=== PATIENT | male | born 1970 | race Caucasian/White ===

== ENCOUNTER 2018-01-17 08:52 | Outpatient (CLI) | payer BC, SELFPAY ==
--- NOTE | 2018-01-17 09:00 | SATEXT_ITS ---
Assessment: Mr. Solorio presents for nutritional counseling for weight management. He has a history of losing significant amounts of weight but he is unable to keep it off. Most recently he did the ideal protein diet and lost 70( ?) pounds but he has since gained it back. He describes his work as mostly sedentary. When he is on his feet he is mostly standing. He reports that he works long hours especially in the summer so at this time he has not worked in an additional physical activity. His dietary recall shows that he has a breakfast sandwich from a store in the morning, he may grab a hot dog or a salad again from a store for lunch, he may have a power bar for a snack, and then dinner is whatever his makes. He drinks black coffee and water all day. He does have 1-2 beers daily. [age] is [age] 347 lbs. His BMI is 50.4 kg/m2. Nutritional Diagnosis: Class 3 obesity related to excess energy intake and physical inactivity as evidenced by BMI of 50.4 kg/m2. Intervention: Acknowledged his efforts in trying to lose weight and the difficulty with working long hours. We discussed the importance of planning meals for work and stocking his refrigerator at work so he can have breakfast and lunch in his office and not from a convenient store. We also discussed prepping fruits and veggies when he firsts buys them. Provided written materials with other tips and strategies. At this visit, we did not set an action plan for physical activity however we talked about its importance. Monitoring and Evaluation: Mr. Solorio will self monitor his progress on his action plans and will return for follow up in two weeks. Will evaluate his nutrition care plan at that time and adjust as needed. Thank you for the referral.
== END 2018-01-17 08:53 ==
PROVIDERS: PCP Internal Medicine; Visit Provider Dietitian, Registered
DX: E66.9 Obesity, unspecified (principal); Z71.3 Dietary counseling and surveillance
CPT/HCPCS: 97802

== ENCOUNTER 2018-02-07 12:24 | Outpatient (CLI) | payer BC, SELFPAY ==
--- NOTE | 2018-02-07 08:00 | NS.NUTBLAN_ITS ---
Mr. Solorio returns for follow up nutritional counseling for weight management. He reports that he has followed through on the action plans that he set forth at our last session. He is packing fruits and vegetables for work. He is also packing more lunches in general. His weight is down to 343 lbs. He would like to return to follow up in one month as he states he would like to have someone to report to. Will continue to monitor PO intake, physical activity and weight. Will evaluate nutrition care plan ongoing and adjust accordingly.
== END 2018-02-07 12:44 ==
PROVIDERS: PCP Internal Medicine; Visit Provider Dietitian, Registered
DX: E66.2 Morbid (severe) obesity with alveolar hypoventilation (principal); Z68.43 Body mass index [BMI] 50.0-59.9, adult; Z71.3 Dietary counseling and surveillance
CPT/HCPCS: 97803

== ENCOUNTER 2018-10-04 09:57 | Outpatient (REF) | payer BC, SELFPAY ==
[2018-10-04 22:18] LABS: Anion Gap 8.6 mmol/L (3-11); BUN 16 mg/dL (7-18); CO2 28.4 mmol/L (21.0-32.0); CREATININE 1.03 mg/dL (0.70-1.30); Calcium 9.2 mg/dL (8.5-10.1); Chloride 102 mmol/L (98-107); Glucose 99 mg/dL (70-100); Potassium 3.8 mmol/L (3.5-5.1); Sodium 139 mmol/L (136-145)
[2018-10-04 22:41] LABS: Cholesterol 174 mg/dL (50-200); HDL Cholesterol 37 mg/dL (40-60); LDL CHOLESTEROL 122 mg/dL (<100); Triglyceride 82 mg/dL (30-150)
== END 2018-10-04 10:17 ==
LOC: NCHCN 09:57
PROVIDERS: PCP Internal Medicine; Visit Provider Internal Medicine
DX: I10 Essential (primary) hypertension (principal); Z13.220 Encounter for screening for lipoid disorders
CPT/HCPCS: 80048; 80061; 83721

== ENCOUNTER 2019-12-09 12:21 | Outpatient (REF) | payer BC, SELFPAY | END 2019-12-09 12:41 | LOC: NCHCN 12:21 | PROVIDERS: PCP Internal Medicine; Visit Provider Nurse Practitioner Family | DX: R10.11 Right upper quadrant pain (principal) | CPT/HCPCS: 87086 ==

== ENCOUNTER 2020-08-26 10:21 | Outpatient (REF) | payer BC, SELFPAY ==
[2020-08-26 13:44] LABS: ALT 51 U/L (16-63); AST 29 U/L (15-37); Albumin 3.7 g/dL (3.4-5.0); Alkaline Phosphatase 67 U/L (46-116); Anion Gap -0.8 mmol/L (3-11); BUN 15 mg/dL (7-18); Bilirubin, Total 0.6 mg/dL (0.2-1.0); CO2 28.8 mmol/L (21.0-32.0); CREATININE 1.1 mg/dL (0.70-1.30); Calcium 8.9 mg/dL (8.5-10.1); Calculated LDL 107 mg/dL (<100); Chloride 102 mmol/L (98-107); Cholesterol 165 mg/dL (<200); Glucose 110 mg/dL (74-106); HDL Cholesterol 42 mg/dL (40-60); Potassium 4.1 mmol/L (3.5-5.1); Sodium 130 mmol/L (136-145); Total Protein 7.1 g/dL (6.4-8.2); Triglyceride 80 mg/dL (<150)
== END 2020-08-26 10:22 | disposition home or self-care (01) ==
LOC: NCHCN 10:21
PROVIDERS: PCP Internal Medicine; Visit Provider Internal Medicine
DX: I10 Essential (primary) hypertension (principal); Z13.220 Encounter for screening for lipoid disorders
CPT/HCPCS: 80053; 80061

== ENCOUNTER 2021-03-24 09:47 | Outpatient (REF) | payer BC, SELFPAY ==
[2021-03-24 15:06] LABS: Abs Immature Grans 0.05 10^3/uL (0.0-0.06); Absolute Basophil Count 0.04 10^3/uL (0.0-0.2); Absolute Lymphocyte Count 1.65 10^3/uL (1.2-3.4); Absolute Monocyte Count 0.47 10^3/uL (0.1-0.8); Absolute Neutrophil Count 3.98 10^3/uL (1.2-6.7); Basophils % 0.6; Eosinophils % 4.6; HCT 46.2 % (40.0-50.0); HGB 14.7 g/dL (13.5-17.5); Immature Grans % 0.8; Lymphocytes % 25.4; MCH 26.5 pg (27.0-33.0); MCHC 31.8 % (32.0-36.0); MCV 83.4 fL (80-95); MPV 10.6 fL (8.0-11.0); Monocytes % 7.2; Neutrophils % 61.4; Nucleated RBC 0 %; Platelet Count 272 10^3/uL (130-400); RBC 5.54 10^6/uL (4.36-5.78); RDW-SD 39.3 fL; WBC 6.49 10^3/uL (4.4-10.8)
[2021-03-24 15:15] LABS: Glucose 95 mg/dL (74-106)
[2021-03-24 15:27] LABS: Hemoglobin A1C 5.8 % (<5.7)
== END 2021-03-24 09:48 | disposition home or self-care (01) ==
LOC: NCHCN 09:47
PROVIDERS: PCP Internal Medicine; Visit Provider Internal Medicine
DX: R73.03 Prediabetes (principal); G47.33 Obstructive sleep apnea (adult) (pediatric); Z12.5 Encounter for screening for malignant neoplasm of prostate; I10 Essential (primary) hypertension
CPT/HCPCS: 82947; 84153; 83036; 85025

== ENCOUNTER 2021-09-27 08:54 | Outpatient (REF) | payer BC, SELFPAY ==
[2021-09-27 15:27] LABS: Hemoglobin A1C 5.9 % (<5.7)
[2021-09-27 15:54] LABS: ALT 33 U/L (16-63); AST 22 U/L (15-37); Albumin 3.8 g/dL (3.4-5.0); Alkaline Phosphatase 68 U/L (46-116); BUN 18 mg/dL (7-18); Bilirubin, Direct 0.1 mg/dL (0.0-0.2); Bilirubin, Total 0.5 mg/dL (0.2-1.0); Calcium 8.7 mg/dL (8.5-10.1); Calculated LDL 107 mg/dL (<100); Chloride 103 mmol/L (98-107); Cholesterol 166 mg/dL (<200); Glucose 99 mg/dL (74-106); HDL Cholesterol 45 mg/dL (40-60); Potassium 4.3 mmol/L (3.5-5.1); Sodium 140 mmol/L (136-145); Total Protein 7.1 g/dL (6.4-8.2); Triglyceride 74 mg/dL (<150)
== END 2021-09-27 08:55 | disposition home or self-care (01) ==
LOC: NCHCN 08:54
PROVIDERS: PCP Internal Medicine; Visit Provider Internal Medicine
DX: R73.03 Prediabetes (principal); E78.5 Hyperlipidemia, unspecified; E66.9 Obesity, unspecified
CPT/HCPCS: 80053; 80061; 80076; 83036

== ENCOUNTER 2022-09-28 17:47 | Outpatient (REF) | payer BC, SELFPAY ==
[2022-09-28 15:29] LABS: ALT 39 U/L (16-63); AST 27 U/L (15-37); Albumin 3.9 g/dL (3.4-5.0); Alkaline Phosphatase 65 U/L (46-116); Anion Gap 8.4 mmol/L (3-11); BUN 18 mg/dL (7-18); Bilirubin, Total 0.5 mg/dL (0.2-1.0); CO2 29.6 mmol/L (21.0-32.0); CREATININE 1.3 mg/dL (0.70-1.30); Calcium 9.5 mg/dL (8.5-10.1); Calculated LDL 116 mg/dL (<100); Chloride 102 mmol/L (98-107); Cholesterol 177 mg/dL (<200); Estimated GFR 66.51 (mL/min/1.73m2); Glucose 107 mg/dL (74-106); HDL Cholesterol 48 mg/dL (40-60); Potassium 3.7 mmol/L (3.5-5.1); Sodium 140 mmol/L (136-145); Triglyceride 68 mg/dL (<150)
== END 2022-09-28 17:48 | disposition home or self-care (01) ==
LOC: NCHCN 17:47
PROVIDERS: PCP Internal Medicine; Visit Provider Internal Medicine
DX: I10 Essential (primary) hypertension (principal); E78.5 Hyperlipidemia, unspecified; R73.03 Prediabetes
CPT/HCPCS: 80053; 80061

== ENCOUNTER 2023-06-19 16:55 | Outpatient (REF) | payer BC, SELFPAY ==
[2023-06-19 22:19] LABS: Anion Gap 11.3 mmol/L (3-11); BUN 18 mg/dL (7-18); CO2 24.7 mmol/L (21.0-32.0); CREATININE 1.1 mg/dL (0.70-1.30); Calcium 9.9 mg/dL (8.5-10.1); Chloride 101 mmol/L (98-107); Estimated GFR 80.77 (mL/min/1.73m2); Glucose 115 mg/dL (74-106); Potassium 3.9 mmol/L (3.5-5.1); Sodium 137 mmol/L (136-145)
[2023-06-19 22:23] LABS: Hemoglobin A1C 5.9 % (<5.7)
== END 2023-06-19 16:56 | disposition home or self-care (01) ==
LOC: NCHCN 16:55
PROVIDERS: PCP Internal Medicine; Visit Provider Internal Medicine
DX: I10 Essential (primary) hypertension (principal); R73.03 Prediabetes
CPT/HCPCS: 80048; 83036

== ENCOUNTER 2023-09-04 13:17 | Outpatient (REF) | payer BC, SELFPAY ==
[2023-09-04 21:40] LABS: HCT 42.6 % (40.0-50.0); HGB 14.4 g/dL (13.5-17.5); MCH 27.7 pg (27.0-33.0); MCHC 33.8 % (32.0-36.0); MCV 82 fL (80-95); MPV 10.3 fL (8.0-11.0); Platelet Count 337 10^3/uL (130-400); RDW 12.5 % (11.8-14.1); RDW-SD 37.3 fL; WBC 9.18 10^3/uL (4.4-10.8)
[2023-09-04 22:01] LABS: Anion Gap 9.9 mmol/L (3-11); BUN 21 mg/dL (7-18); CO2 26.1 mmol/L (21.0-32.0); CREATININE 1.2 mg/dL (0.70-1.30); Calcium 9.3 mg/dL (8.5-10.1); Chloride 100 mmol/L (98-107); Estimated GFR 72.76 (mL/min/1.73m2); Glucose 147 mg/dL (74-106); Potassium 3.5 mmol/L (3.5-5.1); Sodium 136 mmol/L (136-145); TSH 2.33 uIU/Ml (0.36-3.74)
== END 2023-09-04 13:18 | disposition home or self-care (01) ==
LOC: NCHCN 13:17
PROVIDERS: PCP Internal Medicine; Visit Provider Internal Medicine
DX: I10 Essential (primary) hypertension (principal); R73.03 Prediabetes; E66.9 Obesity, unspecified
CPT/HCPCS: 80048; 85027; 83036; 84443

== ENCOUNTER 2024-08-30 16:11 | Outpatient (REF) | payer BC, SELFPAY ==
[2024-08-30 21:25] LABS: Abs Immature Grans 0.07 10^3/uL (0.0-0.06); Absolute Basophil Count 0.07 10^3/uL (0.0-0.2); Absolute Eosinophil Count 1.79 10^3/uL (0.0-0.7); Absolute Lymphocyte Count 2.62 10^3/uL (1.2-3.4); Absolute Monocyte Count 0.91 10^3/uL (0.1-0.8); Absolute Neutrophil Count 6.54 10^3/uL (1.2-6.7); Basophils % 0.6 %; Eosinophils % 14.9 %; HCT 45.1 % (40.0-50.0); HGB 15.3 g/dL (13.5-17.5); Immature Grans % 0.6 %; Lymphocytes % 21.8 %; MCH 27.7 pg (27.0-33.0); MCHC 33.9 % (32.0-36.0); MCV 82 fL (80-95); MPV 10.1 fL (8.0-11.0); Monocytes % 7.6 %; Neutrophils % 54.5 %; Platelet Count 391 10^3/uL (130-400); RBC 5.53 10^6/uL (4.36-5.78); RDW 13.2 % (11.8-14.1); RDW-SD 38.5 fL
[2024-08-30 21:53] LABS: ALT 42 U/L (16-63); AST 29 U/L (15-37); Alkaline Phosphatase 65 U/L (46-116); Anion Gap 9.7 mmol/L (3-11); BUN 21 mg/dL (7-18); Bilirubin, Total 0.6 mg/dL (0.2-1.0); CO2 27.3 mmol/L (21.0-32.0); CREATININE 1.2 mg/dL (0.70-1.30); Calcium 10.2 mg/dL (8.5-10.1); Chloride 101 mmol/L (98-107); Estimated GFR 72.31 (mL/min/1.73m2); Glucose 116 mg/dL (74-106); Potassium 4.2 mmol/L (3.5-5.1); Sodium 138 mmol/L (136-145); Total Protein 7.9 g/dL (6.4-8.2)
== END 2024-08-30 16:12 | disposition home or self-care (01) ==
LOC: NCHCN 16:11
PROVIDERS: PCP Internal Medicine; Visit Provider Internal Medicine
DX: R19.7 Diarrhea, unspecified (principal)
CPT/HCPCS: 80053; 85025

== ENCOUNTER 2024-09-02 10:23 | Outpatient (REF) | payer BC, SELFPAY ==
[2024-09-03 11:29] LABS: Campylobacter PCR Negative (Negative); Salmonella PCR Negative (Negative); Shiga Toxin PCR Negative (Negative); Shigella/Enteroinvasive Ecoli Negative (Negative)
[2024-09-05 14:35] LABS: Cryptosporidium, F Negative (Negative); Giardia Ag, F Negative (Negative)
== END 2024-09-02 10:24 | disposition home or self-care (01) ==
LOC: NCHCN 10:23
PROVIDERS: PCP Internal Medicine; Visit Provider Internal Medicine
DX: R19.7 Diarrhea, unspecified (principal)
CPT/HCPCS: 87328; 87329; 87505

== ENCOUNTER 2024-10-11 14:05 | Outpatient (REF) | payer BC, SELFPAY ==
[2024-10-11 14:58] LABS: Hemoglobin A1C 5.6 % (<5.7)
[2024-10-11 15:13] LABS: ALT 27 U/L (16-63); AST 23 U/L (15-37); Albumin 3.9 g/dL (3.4-5.0); Alkaline Phosphatase 63 U/L (46-116); BUN 17 mg/dL (7-18); Bilirubin, Total 0.4 mg/dL (0.2-1.0); CREATININE 1.3 mg/dL (0.70-1.30); Calcium 9.9 mg/dL (8.5-10.1); Calculated LDL 104 mg/dL (<100); Chloride 102 mmol/L (98-107); Cholesterol 164 mg/dL (<200); Estimated GFR 65.69 (mL/min/1.73m2); Glucose 91 mg/dL (74-106); HDL Cholesterol 42 mg/dL (>or=40); Potassium 3.7 mmol/L (3.5-5.1); Sodium 138 mmol/L (136-145); Total Protein 7.5 g/dL (6.4-8.2); Triglyceride 91 mg/dL (<150)
== END 2024-10-11 14:06 | disposition home or self-care (01) ==
LOC: NCHCN 14:05
PROVIDERS: PCP Internal Medicine; Visit Provider Internal Medicine
DX: R73.03 Prediabetes (principal)
CPT/HCPCS: 80053; 80061; 83036